=== PATIENT | female | born 2000 | race Caucasian/White ===

== ENCOUNTER 2020-10-02 20:28 | Emergency (ER) | payer BC ==
[~2020-10-02] VITALS: Ht 180.3 cm; Wt 68.1 kg
[2020-10-02 21:10] VITALS: TEMP 98.2
[2020-10-03 00:39] VITALS: BP 140/87; PULSE 93
== END 2020-10-03 00:39 | disposition home or self-care (01) ==
LOC: COL.ER 20:28
DX: S01.111A Laceration without foreign body of right eyelid and periocular area, initial encounter (principal); Z23 Encounter for immunization; W16.012A Fall into swimming pool striking water surface causing other injury, initial encounter; Y93.39 Activity, other involving climbing, rappelling and jumping off